=== PATIENT | male | born 1935 | race Caucasian/White ===

== ENCOUNTER 2020-06-12 18:19 | Inpatient (IN) ==
[2020-06-12] MEDS ORDERED: diphenhydrAMINE CAP 25 MG CAPSULE PO PRN (19:14)
[2020-06-12] MEDS ORDERED: GLUCAGON 1 MG VIAL IM PRN ×2 (19:14→19:33)
[2020-06-12] MEDS ORDERED: guaiFENesin/DM ER 600-30 MG TABLET PO PRN (19:14)
[2020-06-12] MEDS ORDERED: NICOTINE 21 MG/24 HR PATCH TRANSDERM PRN (19:14)
[2020-06-12] MEDS ORDERED: ONDANSETRON 4 MG/2 ML VIAL IV PRN (19:14)
[2020-06-12] MEDS ORDERED: DEXTROSE 50% 25 GM/50 ML VIAL IV PRN ×2 (19:14→19:33)
[2020-06-12] MEDS ORDERED: ALBUTEROL 2.5 MG/3 ML NEB RESP TX PRN (19:14)
[2020-06-12] MEDS ORDERED: hydrALAZINE 20 MG/1 ML VIAL IV PRN (19:14)
[2020-06-12 20:02] LABS: Basophils % 0.5 % (0.0-0.8); Eosinophils # 0.1 10*3/uL (0.0-0.87); Eosinophils % 0.7 % (0.00-10.9); Hematocrit 44.6 VOL% (42.0-52.0); Hemoglobin 14.5 GM/DL (14.0-18.0); Immature Granulocytes % 0.2 %; Immature Granulocytes Absolute 0.02 #; Lymphocytes # 2.3 10*3/uL (1.4-4.0); Lymphocytes % 28.8 % (21.2-54.2); Mean Corpuscular HGB Conc 32.5 GM/DL (32-36); Mean Corpuscular Volume 92.7 FL (87-102); Mean Platelet Volume 9.5 FL (9.6-12.0); Monocytes % 8.4 % (1.7-12.7); Neutrophils % 61.4 % (38.7-73.9); Platelet Count 173 T/CUMM (130-400); Red Blood Count 4.81 MC/CUMM (3.8-5.5); Red Cell Distribution Width 12.6 % (9.3-17.3); White Blood Count 8.1 T/CUMM (4-12)
[2020-06-12 20:20] LABS: Calcium 8.9 MG/DL (8.5-10.1); Osmolality,Calculated 283.5 MOS/KG (273-304)
[2020-06-12] MEDS: INSULIN LISPRO 100 UNIT/ML SUBCUT SCH (21:55)
[2020-06-12] MEDS: SODIUM CHLORIDE 0.9% 1,000 ML IV SCH (23:33)
[2020-06-12] MEDS: ZALEPLON 5 MG CAPSULE PO PRN (23:34)
[2020-06-13 01:19] LABS: Apearance,Urine Cloudy (Clear); Bilirubin,Urine Negative (Negative); Blood, Urine Small mg/dL (Negative); Glucose,Urine (UA) >500 mg/dL (Negative); Ketones,Urine 20 mg/dL (Negative); Nitrite,Urine Negative (Negative); Protein,Urine 30 MG/DL; Urine Color Yellow (Yellow); Urine Specific Gravity 1.024 (1.001-1.035); Urine Urobilinogen < 2.0 EU/DL (0.2-1.0)
[2020-06-13 01:20] LABS: Bacteria,Urine Few /HPF (Few); Mucus,Urine Few /LPF (Occasional); Squamous Epithelial Cell,Urine Few /HPF (0-10); WBC,Urine TNTC /HPF (0-6)
[2020-06-13] MEDS ORDERED: NAPROXEN 250 MG TABLET PO ONE (04:59)
[2020-06-13] MEDS: ACETAMINOPHEN 325 MG TABLET PO PRN ×2 (05:59→11:27)
[2020-06-13 06:56] LABS: Albumin 3.2 G/DL (3.4-5.0); Bilirubin,Total 1.1 MG/DL (0.2-1.0); Calcium 8.9 MG/DL (8.5-10.1); Osmolality,Calculated 284.4 MOS/KG (273-304); Risk Ratio 2.14; Total Protein 6.5 G/DL (6.4-8.3); VLDL CHOLESTEROL 14.2 MG/DL
[2020-06-13] MEDS: PANTOPRAZOLE 40 MG TABLET PO SCH (09:44)
[2020-06-13] MEDS: cefTRIAXone 1,000 MG in SYRINGE 1 EACH IV SCH (09:44)
[2020-06-13] MEDS: INSULIN LISPRO 100 UNIT/ML SUBCUT SCH ×4 (10:37→21:42)
[2020-06-13] MEDS: SODIUM CHLORIDE 0.9% 1,000 ML IV SCH (11:53)
[2020-06-13 16:27] LABS: Folate > 24.0 NG/ML (5.4-24.0); Vitamin B12 874 PG/ML (211-911)
[2020-06-13] MEDS: ZALEPLON 5 MG CAPSULE PO PRN ×2 (21:40→22:57)
[2020-06-13] MEDS: ACETAMINOPHEN 325 MG TABLET PO SCH (21:41)
[2020-06-13] MEDS: CITALOPRAM 20 MG TABLET PO SCH (21:41)
[2020-06-13] MEDS: GABAPENTIN 400 MG CAPSULE PO SCH (21:41)
[2020-06-13] MEDS: ZINC OXIDE PASTE 113 GM TUBE TOP SCH (21:42)
[2020-06-14] MEDS: SODIUM CHLORIDE 0.9% 1,000 ML IV SCH (01:52)
[2020-06-14 09:49] LABS: Basophils # 0.1 10*3/uL (0.0-0.2); Basophils % 0.7 % (0.0-0.8); Eosinophils # 0.3 10*3/uL (0.0-0.87); Eosinophils % 3.4 % (0.00-10.9); Hemoglobin 14.2 GM/DL (14.0-18.0); Immature Granulocytes % 0.2 %; Immature Granulocytes Absolute 0.02 #; Lymphocytes # 2.3 10*3/uL (1.4-4.0); Lymphocytes % 28.2 % (21.2-54.2); Mean Corpuscular HGB Conc 32.3 GM/DL (32-36); Mean Corpuscular Volume 93.6 FL (87-102); Mean Platelet Volume 9.5 FL (9.6-12.0); Monocytes % 8.2 % (1.7-12.7); Neutrophils % 59.3 % (38.7-73.9); Platelet Count 164 T/CUMM (130-400); Red Cell Distribution Width 12.6 % (9.3-17.3); White Blood Count 8.2 T/CUMM (4-12)
[2020-06-14 10:12] LABS: Calcium 8.7 MG/DL (8.5-10.1); Osmolality,Calculated 279.8 MOS/KG (273-304)
[2020-06-14] MEDS: cefTRIAXone 1,000 MG in SYRINGE 1 EACH IV SCH (10:48)
[2020-06-14] MEDS: INSULIN LISPRO 100 UNIT/ML SUBCUT SCH ×4 (10:54→23:14)
[2020-06-14] MEDS: TAMSULOSIN 0.4 MG CAPSULE PO SCH (10:57)
[2020-06-14] MEDS: ASCORBIC ACID 500 MG TABLET PO SCH (10:57)
[2020-06-14] MEDS: PANTOPRAZOLE 40 MG TABLET PO SCH (10:57)
[2020-06-14] MEDS: MULTIVITAMIN (CENTRUM) TABLET PO SCH (10:58)
[2020-06-14] MEDS: CITALOPRAM 20 MG TABLET PO SCH ×2 (10:58→22:20)
[2020-06-14] MEDS ORDERED: MAGNESIUM SULF RIDER 4 GM in PREMIX 1 EACH IV PRN (10:59)
[2020-06-14] MEDS ORDERED: MAGNESIUM SULF RIDER 2 GM in PREMIX 1 EACH IV PRN (10:59)
[2020-06-14] MEDS: ZINC OXIDE PASTE 113 GM TUBE TOP SCH ×2 (11:05→22:21)
[2020-06-14] MEDS: DOCUSATE SODIUM 100 MG CAPSULE PO PRN (11:06)
[2020-06-14] MEDS: PHENAZOPYRIDINE 95 MG TABLET PO SCH (17:05)
[2020-06-14] MEDS: ZALEPLON 5 MG CAPSULE PO PRN (22:18)
[2020-06-14] MEDS: GABAPENTIN 400 MG CAPSULE PO SCH (22:18)
[2020-06-14] MEDS: ACETAMINOPHEN 325 MG TABLET PO SCH (22:20)
[2020-06-14] MEDS: ATORVASTATIN 40 MG TABLET PO SCH (22:20)
[2020-06-15] MEDS: SODIUM CHLORIDE 0.9% 1,000 ML IV SCH ×3 (00:24→17:23)
[2020-06-15] MEDS: ACETAMINOPHEN 325 MG TABLET PO PRN (05:10)
[2020-06-15 06:11] LABS: Basophils % 0.5 % (0.0-0.8); Eosinophils # 0.3 10*3/uL (0.0-0.87); Eosinophils % 3.3 % (0.00-10.9); Hematocrit 42.7 VOL% (42.0-52.0); Hemoglobin 14.2 GM/DL (14.0-18.0); Immature Granulocytes % 0.3 %; Immature Granulocytes Absolute 0.02 #; Lymphocytes # 2.8 10*3/uL (1.4-4.0); Lymphocytes % 35.4 % (21.2-54.2); Mean Corpuscular HGB Conc 33.3 GM/DL (32-36); Mean Platelet Volume 9.3 FL (9.6-12.0); Monocytes % 8.9 % (1.7-12.7); Neutrophils % 51.6 % (38.7-73.9); Platelet Count 158 T/CUMM (130-400); Red Blood Count 4.69 MC/CUMM (3.8-5.5); Red Cell Distribution Width 12.5 % (9.3-17.3); White Blood Count 7.9 T/CUMM (4-12)
[2020-06-15 06:27] LABS: Calcium 8.6 MG/DL (8.5-10.1); Osmolality,Calculated 283.5 MOS/KG (273-304)
[2020-06-15] MEDS: PHENAZOPYRIDINE 95 MG TABLET PO SCH ×3 (09:14→17:22)
[2020-06-15] MEDS: ASCORBIC ACID 500 MG TABLET PO SCH (09:14)
[2020-06-15] MEDS: CITALOPRAM 20 MG TABLET PO SCH ×2 (09:14→20:56)
[2020-06-15] MEDS: PANTOPRAZOLE 40 MG TABLET PO SCH (09:14)
[2020-06-15] MEDS: TAMSULOSIN 0.4 MG CAPSULE PO SCH (09:14)
[2020-06-15] MEDS: ASPIRIN CHEW 81 MG TABLET PO SCH (09:14)
[2020-06-15] MEDS: INSULIN LISPRO 100 UNIT/ML SUBCUT SCH ×4 (09:15→22:06)
[2020-06-15] MEDS: cefTRIAXone 1,000 MG in SYRINGE 1 EACH IV SCH (09:15)
[2020-06-15] MEDS: ZINC OXIDE PASTE 113 GM TUBE TOP SCH ×2 (09:17→22:07)
[2020-06-15] MEDS: POTASSIUM CHLORIDE RIDER 10 MEQ in PREMIX 1 EACH IV PRN ×2 (09:17→11:24)
[2020-06-15] MEDS: lisinopriL 10 MG TABLET PO SCH (09:21)
[2020-06-15] MEDS: MULTIVITAMIN (CENTRUM) TABLET PO SCH (09:21)
[2020-06-15] MEDS ORDERED: AMPICILLIN INJ 1,000 MG in SODIUM CHLORIDE 0.9% 100 ML IV SCH (18:30)
[2020-06-15] MEDS ORDERED: AMPICILLIN INJ 500 MG in SODIUM CHLORIDE 0.9% 100 ML IV SCH (18:30)
[2020-06-15] MEDS: FLUCONAZOLE INJ 200 MG in PREMIX 1 EACH IV SCH (19:15)
[2020-06-15] MEDS: AMPICILLIN INJ 1,000 MG in SODIUM CHLORIDE 0.9% 100 ML IV SCH (20:53)
[2020-06-15] MEDS: ACETAMINOPHEN 325 MG TABLET PO SCH (20:56)
[2020-06-15] MEDS: GABAPENTIN 400 MG CAPSULE PO SCH (20:56)
[2020-06-15] MEDS: ATORVASTATIN 40 MG TABLET PO SCH (20:57)
[2020-06-16] MEDS: AMPICILLIN INJ 1,000 MG in SODIUM CHLORIDE 0.9% 100 ML IV SCH ×4 (04:33→21:57)
[2020-06-16] MEDS: SODIUM CHLORIDE 0.9% 1,000 ML IV SCH ×2 (04:37→17:40)
[2020-06-16 06:28] LABS: Basophils % 0.5 % (0.0-0.8); Eosinophils # 0.3 10*3/uL (0.0-0.87); Eosinophils % 4.5 % (0.00-10.9); Hematocrit 39.1 VOL% (42.0-52.0); Hemoglobin 12.7 GM/DL (14.0-18.0); Immature Granulocytes % 0.3 %; Immature Granulocytes Absolute 0.02 #; Lymphocytes # 2.7 10*3/uL (1.4-4.0); Lymphocytes % 37.3 % (21.2-54.2); Mean Corpuscular HGB Conc 32.5 GM/DL (32-36); Mean Corpuscular Volume 93.3 FL (87-102); Mean Platelet Volume 9.9 FL (9.6-12.0); Monocytes % 9.3 % (1.7-12.7); Neutrophils % 48.1 % (38.7-73.9); Platelet Count 154 T/CUMM (130-400); Red Blood Count 4.19 MC/CUMM (3.8-5.5); Red Cell Distribution Width 12.7 % (9.3-17.3); White Blood Count 7.3 T/CUMM (4-12)
[2020-06-16 06:49] LABS: Calcium 8.5 MG/DL (8.5-10.1); Osmolality,Calculated 286.5 MOS/KG (273-304)
[2020-06-16] MEDS: POTASSIUM CHLORIDE RIDER 10 MEQ in PREMIX 1 EACH IV PRN (07:36)
[2020-06-16] MEDS: PHENAZOPYRIDINE 95 MG TABLET PO SCH ×3 (09:09→16:15)
[2020-06-16] MEDS: ASCORBIC ACID 500 MG TABLET PO SCH (09:09)
[2020-06-16] MEDS: MULTIVITAMIN (CENTRUM) TABLET PO SCH (09:09)
[2020-06-16] MEDS: PANTOPRAZOLE 40 MG TABLET PO SCH (09:10)
[2020-06-16] MEDS: ASPIRIN CHEW 81 MG TABLET PO SCH (09:10)
[2020-06-16] MEDS: lisinopriL 10 MG TABLET PO SCH (09:10)
[2020-06-16] MEDS: TAMSULOSIN 0.4 MG CAPSULE PO SCH (09:10)
[2020-06-16] MEDS: CITALOPRAM 20 MG TABLET PO SCH ×2 (09:10→21:57)
[2020-06-16] MEDS: ZINC OXIDE PASTE 113 GM TUBE TOP SCH ×2 (09:11→21:58)
[2020-06-16] MEDS: INSULIN LISPRO 100 UNIT/ML SUBCUT SCH ×4 (10:29→21:10)
[2020-06-16] MEDS ORDERED: LACTULOSE 20 GM/30 ML UDCUP PO PRN (16:53)
[2020-06-16] MEDS: DOCUSATE SODIUM 100 MG CAPSULE PO PRN (17:40)
[2020-06-16] MEDS: FLUCONAZOLE INJ 200 MG in PREMIX 1 EACH IV SCH (17:40)
[2020-06-16] MEDS: ZALEPLON 5 MG CAPSULE PO PRN (21:56)
[2020-06-16] MEDS: GABAPENTIN 400 MG CAPSULE PO SCH (21:57)
[2020-06-16] MEDS: ATORVASTATIN 40 MG TABLET PO SCH (21:57)
[2020-06-16] MEDS: ACETAMINOPHEN 325 MG TABLET PO SCH (21:57)
[2020-06-17] MEDS: AMPICILLIN INJ 1,000 MG in SODIUM CHLORIDE 0.9% 100 ML IV SCH ×4 (02:36→21:23)
[2020-06-17 06:31] LABS: Basophils # 0.1 10*3/uL (0.0-0.2); Basophils % 0.7 % (0.0-0.8); Eosinophils # 0.3 10*3/uL (0.0-0.87); Eosinophils % 4.3 % (0.00-10.9); Hematocrit 40.2 VOL% (42.0-52.0); Hemoglobin 12.6 GM/DL (14.0-18.0); Immature Granulocytes % 0.3 %; Immature Granulocytes Absolute 0.02 #; Lymphocytes % 42.1 % (21.2-54.2); Mean Corpuscular HGB Conc 31.3 GM/DL (32-36); Mean Corpuscular Volume 95.5 FL (87-102); Mean Platelet Volume 10.9 FL (9.6-12.0); Monocytes % 7.3 % (1.7-12.7); Neutrophils % 45.3 % (38.7-73.9); Platelet Count 139 T/CUMM (130-400); Red Blood Count 4.21 MC/CUMM (3.8-5.5); Red Cell Distribution Width 12.4 % (9.3-17.3); White Blood Count 7.2 T/CUMM (4-12)
[2020-06-17 06:49] LABS: Calcium 8.3 MG/DL (8.5-10.1); Osmolality,Calculated 289.1 MOS/KG (273-304)
[2020-06-17] MEDS: SODIUM CHLORIDE 0.9% 1,000 ML IV SCH ×2 (07:18→14:01)
[2020-06-17] MEDS: INSULIN LISPRO 100 UNIT/ML SUBCUT SCH ×4 (08:34→23:51)
[2020-06-17] MEDS: PHENAZOPYRIDINE 95 MG TABLET PO SCH ×3 (08:36→18:21)
[2020-06-17] MEDS: MULTIVITAMIN (CENTRUM) TABLET PO SCH (08:36)
[2020-06-17] MEDS: CITALOPRAM 20 MG TABLET PO SCH ×2 (08:37→22:19)
[2020-06-17] MEDS: ASCORBIC ACID 500 MG TABLET PO SCH (08:37)
[2020-06-17] MEDS: ASPIRIN CHEW 81 MG TABLET PO SCH (08:37)
[2020-06-17] MEDS: TAMSULOSIN 0.4 MG CAPSULE PO SCH (08:37)
[2020-06-17] MEDS: PANTOPRAZOLE 40 MG TABLET PO SCH (08:37)
[2020-06-17] MEDS: ZINC OXIDE PASTE 113 GM TUBE TOP SCH ×2 (09:58→22:19)
[2020-06-17] MEDS: lisinopriL 10 MG TABLET PO SCH (09:58)
[2020-06-17] MEDS ORDERED: LACTULOSE 20 GM/30 ML UDCUP PO PRN ×2 (11:24→11:34)
[2020-06-17] MEDS: METOPROLOL TARTRATE 25 MG TABLET PO SCH ×2 (15:45→23:51)
[2020-06-17] MEDS ORDERED: NITROGLYCERIN SL 0.4 MG TABLET SL PRN (15:47)
[2020-06-17 17:11] LABS: Troponin I < 0.015 NG/ML (0.00-0.045)
[2020-06-17] MEDS: FLUCONAZOLE INJ 200 MG in PREMIX 1 EACH IV SCH (19:05)
[2020-06-17 19:55] LABS: Troponin I < 0.015 NG/ML (0.00-0.045)
[2020-06-17] MEDS: ZALEPLON 5 MG CAPSULE PO PRN (22:15)
[2020-06-17] MEDS: GABAPENTIN 400 MG CAPSULE PO SCH (22:17)
[2020-06-17] MEDS: ATORVASTATIN 40 MG TABLET PO SCH (22:18)
[2020-06-17] MEDS: ACETAMINOPHEN 325 MG TABLET PO SCH (22:18)
[2020-06-18] MEDS: AMPICILLIN INJ 1,000 MG in SODIUM CHLORIDE 0.9% 100 ML IV SCH ×2 (02:13→09:25)
[2020-06-18 05:31] LABS: Basophils # 0.1 10*3/uL (0.0-0.2); Basophils % 0.8 % (0.0-0.8); Eosinophils # 0.3 10*3/uL (0.0-0.87); Eosinophils % 3.6 % (0.00-10.9); Hematocrit 38.7 VOL% (42.0-52.0); Hemoglobin 12.6 GM/DL (14.0-18.0); Immature Granulocytes % 0.4 %; Immature Granulocytes Absolute 0.03 #; Lymphocytes # 2.7 10*3/uL (1.4-4.0); Lymphocytes % 34.1 % (21.2-54.2); Mean Corpuscular HGB Conc 32.6 GM/DL (32-36); Mean Corpuscular Volume 92.1 FL (87-102); Monocytes % 8.2 % (1.7-12.7); Neutrophils % 52.9 % (38.7-73.9); Platelet Count 144 T/CUMM (130-400); Red Cell Distribution Width 12.4 % (9.3-17.3)
[2020-06-18 06:10] LABS: Hypochromasia 1+; Microcytosis 1+; Platelet Estimate Adequate
[2020-06-18 06:23] LABS: Calcium 8.1 MG/DL (8.5-10.1); Osmolality,Calculated 285.8 MOS/KG (273-304)
[2020-06-18] MEDS ORDERED: PIOGLITAZONE 15 MG TABLET PO SCH (09:00)
[2020-06-18] MEDS ORDERED: MEMANTINE 5 MG TABLET PO SCH (09:00)
[2020-06-18] MEDS ORDERED: sitaGLIPtin 100 MG TABLET PO SCH (09:00)
[2020-06-18] MEDS: ASPIRIN CHEW 81 MG TABLET PO SCH (09:13)
[2020-06-18] MEDS: INSULIN LISPRO 100 UNIT/ML SUBCUT SCH (09:13)
[2020-06-18] MEDS: PHENAZOPYRIDINE 95 MG TABLET PO SCH (09:13)
[2020-06-18] MEDS: lisinopriL 10 MG TABLET PO SCH (09:13)
[2020-06-18] MEDS: PANTOPRAZOLE 40 MG TABLET PO SCH (09:13)
[2020-06-18] MEDS: CITALOPRAM 20 MG TABLET PO SCH (09:13)
[2020-06-18] MEDS: METOPROLOL TARTRATE 25 MG TABLET PO SCH (09:14)
[2020-06-18] MEDS: MULTIVITAMIN (CENTRUM) TABLET PO SCH (09:14)
[2020-06-18] MEDS: TAMSULOSIN 0.4 MG CAPSULE PO SCH (09:14)
[2020-06-18] MEDS: ASCORBIC ACID 500 MG TABLET PO SCH (11:08)
[2020-06-18] MEDS: ZINC OXIDE PASTE 113 GM TUBE TOP SCH (11:28)
[2020-06-18 11:41] VITALS: BP 141/71
== END 2020-06-18 13:28 | disposition swing bed (61) | DRG 698 ==
LOC: N.3E 19:01 → SUATTDRO 19:01
PROVIDERS: ADMIT Internal Medicine; ATTEND Internal Medicine

== ENCOUNTER 2021-09-22 09:52 | Inpatient (IN) ==
[2021-09-22 10:17] LABS: Basophils % 0.7 % (0.0-0.8); Eosinophils # 0.1 10*3/uL (0.0-0.87); Eosinophils % 2.2 % (0.00-10.9); Hematocrit 37.5 VOL% (42.0-52.0); Hemoglobin 11.7 GM/DL (14.0-18.0); Immature Granulocytes % 0.5 %; Immature Granulocytes Absolute 0.03 #; Lymphocytes # 1.6 10*3/uL (1.4-4.0); Lymphocytes % 27.5 % (21.2-54.2); Mean Corpuscular HGB Conc 31.2 GM/DL (32-36); Mean Corpuscular Volume 94.9 FL (87-102); Mean Platelet Volume 10.1 FL (9.6-12.0); Monocytes % 8.2 % (1.7-12.7); Neutrophils % 60.9 % (38.7-73.9); Platelet Count 112 T/CUMM (130-400); Red Blood Count 3.95 MC/CUMM (3.8-5.5); Red Cell Distribution Width 12.6 % (9.3-17.3); White Blood Count 5.8 T/CUMM (4-12)
[2021-09-22 10:32] LABS: Calcium 8.5 MG/DL (8.5-10.1); Osmolality,Calculated 292.3 MOS/KG (273-304); Potassium 3.7 MMOL/L (3.5-5.1)
[2021-09-22 10:40] LABS: Platelet Estimate Adequate
[2021-09-22 10:41] LABS: Anisocytosis 1+; Macrocytosis Slight; Ovalocytes Few
[2021-09-22] MEDS ORDERED: KETOROLAC 30 MG/1 ML VIAL IV STA (10:51)
[2021-09-22] MEDS ORDERED: ONDANSETRON 4 MG/2 ML VIAL IV STA (11:46)
[2021-09-22] MEDS ORDERED: HYDROmorphone 2 MG/1 ML VIAL IV STA (11:46)
[2021-09-22] MEDS ORDERED: ACETAMINOPHEN 325 MG TABLET PO PRN (11:50)
[2021-09-22] MEDS ORDERED: NALOXONE 0.4 MG/ML VIAL IV PRN (11:50)
[2021-09-22] MEDS ORDERED: ONDANSETRON 4 MG/2 ML VIAL IV PRN (11:50)
[2021-09-22] MEDS ORDERED: ENOXAPARIN 30 MG/0.3 ML SYRINGE SUBCUT SCH (12:00)
[2021-09-22] MEDS: SODIUM CHLORIDE 0.9% 1,000 ML IV SCH (12:30)
[2021-09-22] MEDS ORDERED: GLUCAGON 1 MG VIAL IM PRN (12:31)
[2021-09-22] MEDS ORDERED: DEXTROSE 50% 25 GM/50 ML VIAL IV PRN ×2 (12:31→13:22)
[2021-09-22] MEDS: CARBIDOPA/LEVODOPA 25-100 MG TABLET PO SCH ×2 (16:02→21:04)
[2021-09-22] MEDS: INSULIN LISPRO 100 UNIT/ML SUBCUT SCH ×2 (16:02→20:46)
[2021-09-22] MEDS: HYDROmorphone 2 MG/1 ML VIAL IV PRN ×2 (16:03→21:05)
[2021-09-22] MEDS ORDERED: METOPROLOL TARTRATE 25 MG TABLET PO SCH (17:00)
[2021-09-22] MEDS: TAMSULOSIN 0.4 MG CAPSULE PO SCH (21:03)
[2021-09-22] MEDS: MEMANTINE 10 MG TABLET PO SCH (21:04)
[2021-09-22] MEDS: DOCUSATE SODIUM 100 MG CAPSULE PO SCH (21:04)
[2021-09-22] MEDS: GABAPENTIN 400 MG CAPSULE PO SCH (21:04)
[2021-09-22] MEDS: TEMAZEPAM 15 MG CAPSULE PO SCH (21:04)
[2021-09-22] MEDS: MELATONIN 3 MG TABLET PO SCH (21:04)
[2021-09-22] MEDS: CITALOPRAM 20 MG TABLET PO SCH (21:04)
[2021-09-23] MEDS: SODIUM CHLORIDE 0.9% 1,000 ML IV SCH (04:04)
[2021-09-23] MEDS ORDERED: VANCOMYCIN INJ 1,000 MG in SODIUM CHLORIDE 0.9% 250 ML IV ONE (07:00)
[2021-09-23] MEDS ORDERED: ceFAZolin 2,000 MG/50 ML DUPLEX IV ONE (07:00)
[2021-09-23] MEDS: INSULIN LISPRO 100 UNIT/ML SUBCUT SCH ×4 (07:40→21:20)
[2021-09-23] MEDS: HYDROmorphone 2 MG/1 ML VIAL IV PRN ×5 (07:41→21:30)
[2021-09-23] MEDS: PIOGLITAZONE 15 MG TABLET PO SCH (08:22)
[2021-09-23] MEDS: CARBIDOPA/LEVODOPA 25-100 MG TABLET PO SCH ×3 (08:22→21:20)
[2021-09-23] MEDS: METOPROLOL TARTRATE 25 MG TABLET PO SCH (08:23)
[2021-09-23] MEDS: PANTOPRAZOLE 40 MG VIAL IV SCH (09:35)
[2021-09-23] MEDS: ASPIRIN CHEW 81 MG TABLET PO SCH (09:35)
[2021-09-23] MEDS: MEMANTINE 10 MG TABLET PO SCH ×2 (09:35→21:20)
[2021-09-23] MEDS: DOCUSATE SODIUM 100 MG CAPSULE PO SCH ×2 (09:35→21:20)
[2021-09-23] MEDS: FINASTERIDE 5 MG TABLET PO SCH (09:35)
[2021-09-23] MEDS: buPROPion SR 150 MG TABLET PO SCH (09:35)
[2021-09-23] MEDS: CITALOPRAM 20 MG TABLET PO SCH ×2 (09:35→21:20)
[2021-09-23] MEDS: FUROSEMIDE 40 MG TABLET PO SCH (09:35)
[2021-09-23] MEDS ORDERED: fentaNYL 100 MCG/2 ML VIAL ONE (10:09)
[2021-09-23] MEDS ORDERED: ROCURONIUM 50 MG/5 ML VIAL IV ONE (10:14)
[2021-09-23] MEDS ORDERED: LIDOCAINE 2% 5 ML VIAL ONE (10:14)
[2021-09-23] MEDS ORDERED: propofoL 200 MG/20 ML VIAL IV ONE (10:14)
[2021-09-23] MEDS ORDERED: ETOMIDATE 40 MG/20 ML VIAL IV ONE (10:14)
[2021-09-23] MEDS ORDERED: ROPIVACAINE 0.5% 30 ML VIAL ONE (10:17)
[2021-09-23] MEDS ORDERED: LIDOCAINE 1% 5 ML VIAL ONE (10:17)
[2021-09-23] MEDS ORDERED: BACITRACIN OINT 0.9 GM PACK TOP ONE (10:25)
[2021-09-23] MEDS ORDERED: ALBUMIN 5% 12.5 GM/250 ML VIAL IV ONE (10:37)
[2021-09-23] MEDS ORDERED: MAGNESIUM HYDROXIDE SUSP 30 ML UDCUP PO PRN (11:19)
[2021-09-23] MEDS ORDERED: DEXMEDETOMIDINE 200 MCG/2 ML VIAL ONE (12:41)
[2021-09-23] MEDS ORDERED: TRANEXAMIC ACID 1,000 MG/10 ML VIAL ONE (12:41)
[2021-09-23] MEDS ORDERED: PHENYLEPHRINE 10 MG/1 ML VIAL IV ONE (12:41)
[2021-09-23] MEDS ORDERED: DEXAMETHASONE 4 MG/1 ML VIAL ONE (12:41)
[2021-09-23] MEDS ORDERED: ONDANSETRON 4 MG/2 ML VIAL ONE (12:41)
[2021-09-23] MEDS ORDERED: GLYCOPYRROLATE 0.4 MG/2 ML VIAL ONE (12:42)
[2021-09-23] MEDS ORDERED: NEOSTIGMINE 10 MG/10 ML VIAL ONE (12:43)
[2021-09-23] MEDS ORDERED: ONDANSETRON 4 MG/2 ML VIAL IV PRN (13:18)
[2021-09-23] MEDS ORDERED: ALBUTEROL/IPRATROPIUM 3 ML NEB RESP TX ONE ×2 (13:40→13:43)
[2021-09-23] MEDS: ceFAZolin 2,000 MG/50 ML DUPLEX IV SCH ×2 (16:11→23:55)
[2021-09-23] MEDS: LACTATED RINGERS 1,000 ML IV SCH (16:12)
[2021-09-23] MEDS ORDERED: CLORAZEPATE 3.75 MG TABLET PO PRN (16:25)
[2021-09-23] MEDS: MELATONIN 3 MG TABLET PO SCH (21:19)
[2021-09-23] MEDS: TEMAZEPAM 15 MG CAPSULE PO SCH (21:19)
[2021-09-23] MEDS: GABAPENTIN 400 MG CAPSULE PO SCH (21:19)
[2021-09-23] MEDS: APIXABAN 2.5 MG TABLET PO SCH (21:20)
[2021-09-23] MEDS: TAMSULOSIN 0.4 MG CAPSULE PO SCH (21:20)
[2021-09-23] MEDS: ATORVASTATIN 40 MG TABLET PO SCH (21:20)
[2021-09-24] MEDS: LACTATED RINGERS 1,000 ML IV SCH (01:55)
[2021-09-24] MEDS: HYDROmorphone 2 MG/1 ML VIAL IV PRN ×2 (04:52→13:28)
[2021-09-24 05:12] LABS: Basophils % 0.2 % (0.0-0.8); Eosinophils # 0.2 10*3/uL (0.0-0.87); Eosinophils % 1.9 % (0.00-10.9); Hematocrit 40.2 VOL% (42.0-52.0); Hemoglobin 12.3 GM/DL (14.0-18.0); Immature Granulocytes % 0.5 %; Immature Granulocytes Absolute 0.05 #; Lymphocytes # 1.2 10*3/uL (1.4-4.0); Lymphocytes % 12.9 % (21.2-54.2); Mean Corpuscular HGB Conc 30.6 GM/DL (32-36); Mean Corpuscular Volume 97.3 FL (87-102); Mean Platelet Volume 10.2 FL (9.6-12.0); Monocytes % 9.2 % (1.7-12.7); Neutrophils % 75.3 % (38.7-73.9); Platelet Count 104 T/CUMM (130-400); Red Blood Count 4.13 MC/CUMM (3.8-5.5); Red Cell Distribution Width 12.6 % (9.3-17.3); White Blood Count 9.6 T/CUMM (4-12)
[2021-09-24 05:45] LABS: Calcium 8.5 MG/DL (8.5-10.1); Potassium 4.1 MMOL/L (3.5-5.1)
[2021-09-24] MEDS ORDERED: ONDANSETRON 4 MG/2 ML VIAL IV PRN (08:03)
[2021-09-24] MEDS: PIOGLITAZONE 15 MG TABLET PO SCH (11:04)
[2021-09-24] MEDS: ASPIRIN CHEW 81 MG TABLET PO SCH (11:07)
[2021-09-24] MEDS: CITALOPRAM 20 MG TABLET PO SCH ×2 (11:07→21:46)
[2021-09-24] MEDS: FUROSEMIDE 40 MG TABLET PO SCH (11:07)
[2021-09-24] MEDS: DOCUSATE SODIUM 100 MG CAPSULE PO SCH ×2 (11:07→21:46)
[2021-09-24] MEDS: APIXABAN 2.5 MG TABLET PO SCH ×2 (11:07→21:46)
[2021-09-24] MEDS: METOPROLOL TARTRATE 25 MG TABLET PO SCH (11:08)
[2021-09-24] MEDS: MEMANTINE 10 MG TABLET PO SCH ×2 (11:09→21:46)
[2021-09-24] MEDS: FINASTERIDE 5 MG TABLET PO SCH (11:09)
[2021-09-24] MEDS: buPROPion SR 150 MG TABLET PO SCH (11:10)
[2021-09-24] MEDS: PANTOPRAZOLE 40 MG VIAL IV SCH (11:10)
[2021-09-24] MEDS: CARBIDOPA/LEVODOPA 25-100 MG TABLET PO SCH ×3 (11:10→21:47)
[2021-09-24] MEDS ORDERED: SODIUM CHLORIDE 0.9% 500 ML IV ONE (12:00)
[2021-09-24] MEDS ORDERED: LORazepam 2 MG/1 ML VIAL IV ONE (12:00)
[2021-09-24] MEDS ORDERED: PROMETHAZINE 25 MG/1 ML VIAL IM PRN ×2 (12:25)
[2021-09-24] MEDS ORDERED: DULAGLUTIDE 1.5 MG/0.5 ML SUBCUT SCH (12:28)
[2021-09-24] MEDS: INSULIN LISPRO 100 UNIT/ML SUBCUT SCH ×4 (13:32→21:22)
[2021-09-24] MEDS ORDERED: LORazepam 2 MG/1 ML VIAL IV PRN (16:39)
[2021-09-24 17:28] LABS: Bilirubin,Urine Negative (Negative); Blood, Urine Small mg/dL (Negative); Glucose,Urine (UA) >=500 mg/dL (Negative); Hyaline Casts,Urine 3 /LPF (0-3); Ketones,Urine 20 mg/dL (Negative); Mucus,Urine Occasional /LPF (Occasional); Nitrite,Urine Negative (Negative); Protein,Urine Negative; RBC,Urine 7 /HPF (0-4); Squamous Epithelial Cell,Urine Occasional /HPF (0-10); Urine Appearance CLEAR (Clear); Urine Color Yellow (Yellow); Urine Specific Gravity 1.021 (1.001-1.035); Urine Urobilinogen < 2.0 EU/DL (0.2-1.0)
[2021-09-24] MEDS: TAMSULOSIN 0.4 MG CAPSULE PO SCH (21:22)
[2021-09-24] MEDS: MELATONIN 3 MG TABLET PO SCH (21:46)
[2021-09-24] MEDS: ATORVASTATIN 40 MG TABLET PO SCH (21:46)
[2021-09-24] MEDS: TEMAZEPAM 15 MG CAPSULE PO SCH (21:46)
[2021-09-24] MEDS: GABAPENTIN 400 MG CAPSULE PO SCH (21:47)
[2021-09-25 04:56] LABS: Basophils % 0.2 % (0.0-0.8); Eosinophils # 0.3 10*3/uL (0.0-0.87); Hematocrit 35.7 VOL% (42.0-52.0); Hemoglobin 11.4 GM/DL (14.0-18.0); Immature Granulocytes % 0.5 %; Immature Granulocytes Absolute 0.04 #; Lymphocytes # 1.4 10*3/uL (1.4-4.0); Lymphocytes % 16.4 % (21.2-54.2); Mean Corpuscular HGB Conc 31.9 GM/DL (32-36); Mean Corpuscular Volume 93.5 FL (87-102); Mean Platelet Volume 10.1 FL (9.6-12.0); Monocytes % 9.7 % (1.7-12.7); Neutrophils % 70.2 % (38.7-73.9); Platelet Count 114 T/CUMM (130-400); Red Blood Count 3.82 MC/CUMM (3.8-5.5); Red Cell Distribution Width 12.8 % (9.3-17.3); White Blood Count 8.3 T/CUMM (4-12)
[2021-09-25 05:18] LABS: Albumin 2.7 G/DL (3.4-5.0); Bilirubin,Total 1.1 MG/DL (0.20-1.00); Calcium 8.5 MG/DL (8.5-10.1); Osmolality,Calculated 286.5 MOS/KG (273-304); Potassium 3.9 MMOL/L (3.5-5.1); Total Protein 5.9 G/DL (6.4-8.2)
[2021-09-25] MEDS: INSULIN LISPRO 100 UNIT/ML SUBCUT SCH ×4 (08:44→22:29)
[2021-09-25] MEDS: LACTATED RINGERS 1,000 ML IV SCH ×2 (08:45→22:18)
[2021-09-25] MEDS: METOPROLOL TARTRATE 25 MG TABLET PO SCH (09:26)
[2021-09-25] MEDS: FUROSEMIDE 40 MG TABLET PO SCH (09:26)
[2021-09-25] MEDS: FINASTERIDE 5 MG TABLET PO SCH (09:26)
[2021-09-25] MEDS: APIXABAN 2.5 MG TABLET PO SCH ×2 (09:27→22:17)
[2021-09-25] MEDS: CITALOPRAM 20 MG TABLET PO SCH ×2 (09:27→22:17)
[2021-09-25] MEDS: ASPIRIN CHEW 81 MG TABLET PO SCH (09:27)
[2021-09-25] MEDS: PIOGLITAZONE 15 MG TABLET PO SCH (09:27)
[2021-09-25] MEDS: buPROPion SR 150 MG TABLET PO SCH (09:27)
[2021-09-25] MEDS: CARBIDOPA/LEVODOPA 25-100 MG TABLET PO SCH ×3 (09:27→22:18)
[2021-09-25] MEDS: MEMANTINE 10 MG TABLET PO SCH ×2 (09:28→22:17)
[2021-09-25] MEDS: DOCUSATE SODIUM 100 MG CAPSULE PO SCH ×2 (09:29→22:18)
[2021-09-25] MEDS: PANTOPRAZOLE 40 MG VIAL IV SCH (09:31)
[2021-09-25] MEDS: TAMSULOSIN 0.4 MG CAPSULE PO SCH ×2 (17:39→22:17)
[2021-09-25] MEDS: TEMAZEPAM 15 MG CAPSULE PO SCH (22:17)
[2021-09-25] MEDS: MELATONIN 3 MG TABLET PO SCH (22:18)
[2021-09-25] MEDS: GABAPENTIN 400 MG CAPSULE PO SCH (22:18)
[2021-09-25] MEDS: ATORVASTATIN 40 MG TABLET PO SCH (22:18)
[2021-09-26] MEDS: LACTATED RINGERS 1,000 ML IV SCH ×2 (04:24→14:24)
[2021-09-26 06:48] LABS: Basophils % 0.4 % (0.0-0.8); Eosinophils # 0.4 10*3/uL (0.0-0.87); Eosinophils % 6.4 % (0.00-10.9); Hematocrit 34.8 VOL% (42.0-52.0); Hemoglobin 11.3 GM/DL (14.0-18.0); Immature Granulocytes % 0.3 %; Immature Granulocytes Absolute 0.02 #; Lymphocytes # 1.6 10*3/uL (1.4-4.0); Lymphocytes % 23.8 % (21.2-54.2); Mean Corpuscular HGB Conc 32.5 GM/DL (32-36); Mean Corpuscular Volume 93.5 FL (87-102); Monocytes % 9.5 % (1.7-12.7); Neutrophils % 59.6 % (38.7-73.9); Platelet Count 121 T/CUMM (130-400); Red Blood Count 3.72 MC/CUMM (3.8-5.5); Red Cell Distribution Width 12.5 % (9.3-17.3); White Blood Count 6.7 T/CUMM (4-12)
[2021-09-26] MEDS: INSULIN LISPRO 100 UNIT/ML SUBCUT SCH ×4 (07:39→21:31)
[2021-09-26] MEDS: FINASTERIDE 5 MG TABLET PO SCH (10:04)
[2021-09-26] MEDS: PIOGLITAZONE 15 MG TABLET PO SCH (10:04)
[2021-09-26] MEDS: DOCUSATE SODIUM 100 MG CAPSULE PO SCH ×2 (10:04→21:32)
[2021-09-26] MEDS: CARBIDOPA/LEVODOPA 25-100 MG TABLET PO SCH ×3 (10:04→21:32)
[2021-09-26] MEDS: ASPIRIN CHEW 81 MG TABLET PO SCH (10:04)
[2021-09-26] MEDS: MEMANTINE 10 MG TABLET PO SCH ×2 (10:04→21:33)
[2021-09-26] MEDS: FUROSEMIDE 40 MG TABLET PO SCH (10:04)
[2021-09-26] MEDS: TAMSULOSIN 0.4 MG CAPSULE PO SCH ×2 (10:05→21:33)
[2021-09-26] MEDS: PANTOPRAZOLE 40 MG VIAL IV SCH (10:05)
[2021-09-26] MEDS: buPROPion SR 150 MG TABLET PO SCH (10:05)
[2021-09-26] MEDS: CITALOPRAM 20 MG TABLET PO SCH ×2 (10:05→21:33)
[2021-09-26] MEDS: APIXABAN 2.5 MG TABLET PO SCH ×2 (10:05→21:32)
[2021-09-26] MEDS: METOPROLOL TARTRATE 25 MG TABLET PO SCH (11:00)
[2021-09-26] MEDS: TEMAZEPAM 15 MG CAPSULE PO SCH (21:31)
[2021-09-26] MEDS: GABAPENTIN 400 MG CAPSULE PO SCH (21:32)
[2021-09-26] MEDS: MELATONIN 3 MG TABLET PO SCH (21:33)
[2021-09-26] MEDS: ATORVASTATIN 40 MG TABLET PO SCH (21:33)
[2021-09-27] MEDS: LACTATED RINGERS 1,000 ML IV SCH ×3 (00:38→19:11)
[2021-09-27] MEDS: buPROPion SR 150 MG TABLET PO SCH (09:08)
[2021-09-27] MEDS: PANTOPRAZOLE 40 MG VIAL IV SCH (09:08)
[2021-09-27] MEDS: INSULIN LISPRO 100 UNIT/ML SUBCUT SCH ×4 (09:08→21:11)
[2021-09-27] MEDS: PIOGLITAZONE 15 MG TABLET PO SCH (09:08)
[2021-09-27] MEDS: DOCUSATE SODIUM 100 MG CAPSULE PO SCH ×2 (09:09→20:05)
[2021-09-27] MEDS: ASPIRIN CHEW 81 MG TABLET PO SCH (09:09)
[2021-09-27] MEDS: FINASTERIDE 5 MG TABLET PO SCH (09:09)
[2021-09-27] MEDS: METOPROLOL TARTRATE 25 MG TABLET PO SCH (09:09)
[2021-09-27] MEDS: APIXABAN 2.5 MG TABLET PO SCH ×2 (09:09→20:05)
[2021-09-27] MEDS: TAMSULOSIN 0.4 MG CAPSULE PO SCH ×2 (09:09→20:05)
[2021-09-27] MEDS: CARBIDOPA/LEVODOPA 25-100 MG TABLET PO SCH ×3 (09:10→20:06)
[2021-09-27] MEDS: FUROSEMIDE 40 MG TABLET PO SCH (09:10)
[2021-09-27] MEDS: CITALOPRAM 20 MG TABLET PO SCH ×2 (09:10→20:05)
[2021-09-27] MEDS: MEMANTINE 10 MG TABLET PO SCH ×2 (09:10→20:06)
[2021-09-27] MEDS: ATORVASTATIN 40 MG TABLET PO SCH (20:05)
[2021-09-27] MEDS: TEMAZEPAM 15 MG CAPSULE PO SCH (20:05)
[2021-09-27] MEDS: GABAPENTIN 400 MG CAPSULE PO SCH (20:05)
[2021-09-27] MEDS: MELATONIN 3 MG TABLET PO SCH (20:06)
[2021-09-28] MEDS: LACTATED RINGERS 1,000 ML IV SCH ×2 (04:37→16:46)
[2021-09-28] MEDS: TAMSULOSIN 0.4 MG CAPSULE PO SCH ×2 (09:43→22:10)
[2021-09-28] MEDS: PIOGLITAZONE 15 MG TABLET PO SCH (09:43)
[2021-09-28] MEDS: buPROPion SR 150 MG TABLET PO SCH (09:43)
[2021-09-28] MEDS: FINASTERIDE 5 MG TABLET PO SCH (09:43)
[2021-09-28] MEDS: DOCUSATE SODIUM 100 MG CAPSULE PO SCH ×2 (09:44→22:10)
[2021-09-28] MEDS: CARBIDOPA/LEVODOPA 25-100 MG TABLET PO SCH ×3 (09:44→22:11)
[2021-09-28] MEDS: FUROSEMIDE 40 MG TABLET PO SCH (09:44)
[2021-09-28] MEDS: METOPROLOL TARTRATE 25 MG TABLET PO SCH (09:44)
[2021-09-28] MEDS: MEMANTINE 10 MG TABLET PO SCH ×2 (09:44→22:11)
[2021-09-28] MEDS: APIXABAN 2.5 MG TABLET PO SCH ×2 (09:44→22:11)
[2021-09-28] MEDS: ASPIRIN CHEW 81 MG TABLET PO SCH (09:44)
[2021-09-28] MEDS: CITALOPRAM 20 MG TABLET PO SCH ×2 (09:45→22:10)
[2021-09-28] MEDS: PANTOPRAZOLE 40 MG VIAL IV SCH (09:50)
[2021-09-28] MEDS: INSULIN LISPRO 100 UNIT/ML SUBCUT SCH ×4 (10:11→22:38)
[2021-09-28] MEDS: GABAPENTIN 400 MG CAPSULE PO SCH (22:10)
[2021-09-28] MEDS: ATORVASTATIN 40 MG TABLET PO SCH (22:10)
[2021-09-28] MEDS: TEMAZEPAM 15 MG CAPSULE PO SCH (22:10)
[2021-09-28] MEDS: MELATONIN 3 MG TABLET PO SCH (22:11)
[2021-09-29] MEDS: LACTATED RINGERS 1,000 ML IV SCH (02:39)
[2021-09-29 05:54] LABS: Basophils % 0.6 % (0.0-0.8); Eosinophils # 0.5 10*3/uL (0.0-0.87); Hemoglobin 10.5 GM/DL (14.0-18.0); Immature Granulocytes % 0.2 %; Immature Granulocytes Absolute 0.01 #; Lymphocytes # 1.9 10*3/uL (1.4-4.0); Lymphocytes % 29.4 % (21.2-54.2); Mean Corpuscular HGB Conc 31.8 GM/DL (32-36); Mean Corpuscular Volume 93.5 FL (87-102); Mean Platelet Volume 11.1 FL (9.6-12.0); Monocytes % 9.6 % (1.7-12.7); Neutrophils % 53.2 % (38.7-73.9); Platelet Count 128 T/CUMM (130-400); Red Blood Count 3.53 MC/CUMM (3.8-5.5); Red Cell Distribution Width 12.5 % (9.3-17.3); White Blood Count 6.5 T/CUMM (4-12)
[2021-09-29 06:12] LABS: Calcium 7.9 MG/DL (8.5-10.1); Osmolality,Calculated 277.7 MOS/KG (273-304); Potassium 2.6 MMOL/L (3.5-5.1)
[2021-09-29] MEDS: ASPIRIN CHEW 81 MG TABLET PO SCH (09:03)
[2021-09-29] MEDS: TAMSULOSIN 0.4 MG CAPSULE PO SCH ×2 (09:03→20:25)
[2021-09-29] MEDS: CARBIDOPA/LEVODOPA 25-100 MG TABLET PO SCH ×3 (09:04→20:25)
[2021-09-29] MEDS: MEMANTINE 10 MG TABLET PO SCH ×2 (09:04→20:25)
[2021-09-29] MEDS: APIXABAN 2.5 MG TABLET PO SCH ×2 (09:05→20:25)
[2021-09-29] MEDS: DOCUSATE SODIUM 100 MG CAPSULE PO SCH ×2 (09:06→20:26)
[2021-09-29] MEDS: METOPROLOL TARTRATE 25 MG TABLET PO SCH ×2 (09:08→20:25)
[2021-09-29] MEDS: CITALOPRAM 20 MG TABLET PO SCH ×2 (09:08→20:25)
[2021-09-29] MEDS: FUROSEMIDE 40 MG TABLET PO SCH (09:10)
[2021-09-29] MEDS: FINASTERIDE 5 MG TABLET PO SCH (09:11)
[2021-09-29] MEDS: buPROPion SR 150 MG TABLET PO SCH (09:11)
[2021-09-29] MEDS: PIOGLITAZONE 15 MG TABLET PO SCH (09:11)
[2021-09-29] MEDS: PANTOPRAZOLE 40 MG VIAL IV SCH (09:12)
[2021-09-29] MEDS: INSULIN LISPRO 100 UNIT/ML SUBCUT SCH ×4 (09:15→20:35)
[2021-09-29] MEDS: POTASSIUM CHLORIDE RIDER 10 MEQ/100 ML PREMIX IV PRN ×4 (10:12→20:36)
[2021-09-29] MEDS: ASCORBIC ACID 500 MG TABLET PO SCH ×2 (15:00→20:25)
[2021-09-29] MEDS: ATORVASTATIN 40 MG TABLET PO SCH (20:24)
[2021-09-29] MEDS: TEMAZEPAM 15 MG CAPSULE PO SCH (20:24)
[2021-09-29] MEDS: GABAPENTIN 400 MG CAPSULE PO SCH (20:24)
[2021-09-29] MEDS: MELATONIN 3 MG TABLET PO SCH (20:25)
[2021-09-30] MEDS: LACTATED RINGERS 1,000 ML IV SCH (01:04)
[2021-09-30] MEDS ORDERED: MAGNESIUM SULF RIDER 2 GM/50 ML PREMIX IV ONE (07:30)
[2021-09-30] MEDS: TAMSULOSIN 0.4 MG CAPSULE PO SCH (08:43)
[2021-09-30] MEDS: buPROPion SR 150 MG TABLET PO SCH (08:43)
[2021-09-30] MEDS: CITALOPRAM 20 MG TABLET PO SCH (08:43)
[2021-09-30] MEDS: FUROSEMIDE 40 MG TABLET PO SCH (08:43)
[2021-09-30] MEDS: APIXABAN 2.5 MG TABLET PO SCH (08:44)
[2021-09-30] MEDS: MEMANTINE 10 MG TABLET PO SCH (08:44)
[2021-09-30] MEDS: CARBIDOPA/LEVODOPA 25-100 MG TABLET PO SCH (08:44)
[2021-09-30] MEDS: ASPIRIN CHEW 81 MG TABLET PO SCH (08:44)
[2021-09-30] MEDS: PIOGLITAZONE 15 MG TABLET PO SCH (08:44)
[2021-09-30] MEDS: ASCORBIC ACID 500 MG TABLET PO SCH (08:44)
[2021-09-30] MEDS: FINASTERIDE 5 MG TABLET PO SCH (08:44)
[2021-09-30] MEDS: METOPROLOL TARTRATE 25 MG TABLET PO SCH (08:45)
[2021-09-30] MEDS: INSULIN LISPRO 100 UNIT/ML SUBCUT SCH ×2 (08:52→13:23)
[2021-09-30] MEDS: DOCUSATE SODIUM 100 MG CAPSULE PO SCH (08:52)
[2021-09-30] MEDS: PANTOPRAZOLE 40 MG VIAL IV SCH (08:53)
[2021-09-30] MEDS ORDERED: POTASSIUM CHLORIDE 20 MEQ TABLET PO SCH (09:00)
[2021-09-30 11:14] VITALS: BP 115/63
== END 2021-09-30 13:21 | DRG 522 ==
LOC: EDUNIT# → EDBD → N.ED 09:52 → N.EDINP 11:50 → N.3E 12:37
PROVIDERS: ADMIT Family Medicine; ATTEND Family Medicine

== ENCOUNTER 2022-07-27 23:20 | Inpatient (IN) ==
[2022-07-28] MEDS ORDERED: ONDANSETRON 4 MG/2 ML VIAL IV STA (00:48)
[2022-07-28] MEDS ORDERED: HYDROmorphone 1 MG/1 ML SYRINGE IV STA (00:48)
[2022-07-28 01:22] LABS: Basophils % 0.4 % (0.0-0.8); Eosinophils # 0.2 10*3/uL (0.0-0.87); Eosinophils % 2.4 % (0.00-10.9); Hematocrit 40.5 VOL% (42.0-52.0); Hemoglobin 13.1 GM/DL (14.0-18.0); Immature Granulocytes % 0.4 %; Immature Granulocytes Absolute 0.03 #; Lymphocytes # 1.8 10*3/uL (1.4-4.0); Lymphocytes % 25.5 % (21.2-54.2); Mean Corpuscular HGB Conc 32.3 GM/DL (32-36); Mean Corpuscular Volume 93.3 FL (87-102); Mean Platelet Volume 10.1 FL (9.6-12.0); Monocytes # 0.6 10*3/uL (0.11-0.8); Monocytes % 8.9 % (1.7-12.7); Neutrophils % 62.4 % (38.7-73.9); Platelet Count 127 T/CUMM (130-400); Red Blood Count 4.34 MC/CUMM (3.8-5.5)
[2022-07-28 01:33] LABS: INR 1.4; PT Patient Result 15.6 SECS (10.1-12.1); Partial Thromboplastin Time 29.1 SECS (23.7-32.9)
[2022-07-28 01:39] LABS: Bacteria,Urine Occasional /HPF (Few); Bilirubin,Urine Negative (Negative); Blood, Urine Negative (Negative); Glucose,Urine (UA) >=1000 mg/dL (Negative); Ketones,Urine Negative (Negative); Mucus,Urine Occasional /LPF (Occasional); Nitrite,Urine Negative (Negative); Protein,Urine Negative (Negative); RBC,Urine <1 /HPF (0-4); Squamous Epithelial Cell,Urine Occasional /HPF (0-10); Urine Appearance Clear (Clear); Urine Color Yellow (Yellow); Urine Urobilinogen 0.2 eU/dL (<2.0); Urine pH 5.5 (4.5-8.0)
[2022-07-28 01:39] LABS: Bilirubin,Total 0.5 MG/DL (0.20-1.00); Calcium 9.2 MG/DL (8.5-10.1); Osmolality,Calculated 293.5 MOS/KG (273-304); Potassium 4.2 MMOL/L (3.5-5.1); Total Protein 6.8 G/DL (6.4-8.2)
[2022-07-28] MEDS ORDERED: ACETAMINOPHEN 325 MG TABLET PO PRN (02:27)
[2022-07-28] MEDS ORDERED: ONDANSETRON 4 MG/2 ML VIAL IV PRN ×2 (02:27→13:53)
[2022-07-28] MEDS: SODIUM CHLORIDE 0.9% 1,000 ML IV SCH ×2 (03:30→12:33)
[2022-07-28] MEDS ORDERED: ceFAZolin 2,000 MG/50 ML DUPLEX IV ONE (07:37)
[2022-07-28] MEDS ORDERED: VANCOMYCIN INJ 1,000 MG in SODIUM CHLORIDE 0.9% 250 ML IV ONE (07:37)
[2022-07-28] MEDS: ATORVASTATIN 40 MG TABLET PO SCH (08:28)
[2022-07-28] MEDS: PANTOPRAZOLE 40 MG TABLET PO SCH (08:28)
[2022-07-28] MEDS: ASPIRIN CHEW 81 MG TABLET PO SCH (08:28)
[2022-07-28] MEDS: ASCORBIC ACID 500 MG TABLET PO SCH ×2 (08:28→20:53)
[2022-07-28] MEDS: DOCUSATE SODIUM 100 MG CAPSULE PO SCH ×2 (08:28→20:53)
[2022-07-28] MEDS ORDERED: ENOXAPARIN 40 MG/0.4 ML SYRINGE SUBCUT SCH ×2 (08:30)
[2022-07-28] MEDS: CARBIDOPA/LEVODOPA 25-100 MG TABLET PO SCH ×3 (09:24→20:53)
[2022-07-28] MEDS: METOPROLOL TARTRATE 25 MG TABLET PO SCH ×2 (09:24→17:26)
[2022-07-28] MEDS: HYDROmorphone 1 MG/1 ML SYRINGE IV PRN ×3 (09:27→14:15)
[2022-07-28] MEDS ORDERED: DEXAMETHASONE 4 MG/1 ML VIAL ONE (09:29)
[2022-07-28] MEDS ORDERED: ROPIVACAINE 0.5% 30 ML VIAL ONE (09:29)
[2022-07-28] MEDS ORDERED: fentaNYL 100 MCG/2 ML VIAL ONE (10:37)
[2022-07-28] MEDS ORDERED: LIDOCAINE 2% 5 ML VIAL ONE (10:38)
[2022-07-28] MEDS ORDERED: propofoL 200 MG/20 ML VIAL IV ONE (10:38)
[2022-07-28] MEDS ORDERED: BACITRACIN OINT 0.9 GM PACK TOP ONE (11:05)
[2022-07-28] MEDS ORDERED: ROCURONIUM 50 MG/5 ML VIAL IV ONE (11:07)
[2022-07-28] MEDS ORDERED: ePHEDrine 50 MG/ML VIAL ONE ×2 (11:59→12:57)
[2022-07-28] MEDS ORDERED: TRANEXAMIC ACID 1,000 MG/10 ML VIAL ONE (12:15)
[2022-07-28] MEDS ORDERED: SODIUM CHLORIDE 0.9% 100 ML IV ONE (12:15)
[2022-07-28] MEDS ORDERED: LACTATED RINGERS 1,000 ML IV ONE (12:19)
[2022-07-28] MEDS ORDERED: ACETAMINOPHEN INJ 1,000 MG/100 ML VIAL IV ONE (12:45)
[2022-07-28] MEDS ORDERED: PHENYLEPHRINE 1 MG/10 ML SYRINGE IV ONE (12:47)
[2022-07-28] MEDS ORDERED: ONDANSETRON 4 MG/2 ML VIAL ONE (12:48)
[2022-07-28] MEDS ORDERED: NEOSTIGMINE 10 MG/10 ML VIAL ONE (12:50)
[2022-07-28] MEDS ORDERED: GLYCOPYRROLATE 0.4 MG/2 ML VIAL ONE (12:50)
[2022-07-28] MEDS ORDERED: MAGNESIUM HYDROXIDE SUSP 30 ML UDCUP PO PRN (13:22)
[2022-07-28] MEDS ORDERED: KETOROLAC 30 MG/1 ML VIAL ONE (13:57)
[2022-07-28] MEDS: KETOROLAC 15 MG/1 ML VIAL IV SCH ×2 (14:06→20:50)
[2022-07-28] MEDS: LACTATED RINGERS 1,000 ML IV SCH ×2 (15:58→20:00)
[2022-07-28] MEDS: ceFAZolin 2,000 MG/50 ML DUPLEX IV SCH (17:30)
[2022-07-28] MEDS ORDERED: INSULIN REGULAR 100 UNIT/ML SUBCUT ONE (20:39)
[2022-07-28] MEDS ORDERED: GLUCAGON 1 MG VIAL IM PRN (21:09)
[2022-07-28] MEDS ORDERED: DEXTROSE 10% 250 ML BAG IV PRN (21:09)
[2022-07-29] MEDS: ceFAZolin 2,000 MG/50 ML DUPLEX IV SCH (01:18)
[2022-07-29] MEDS: KETOROLAC 15 MG/1 ML VIAL IV SCH (01:18)
[2022-07-29] MEDS: LACTATED RINGERS 1,000 ML IV SCH ×3 (03:07→21:28)
[2022-07-29 05:12] LABS: Basophils % 0.2 % (0.0-0.8); Eosinophils % 0.3 % (0.00-10.9); Hematocrit 34.1 VOL% (42.0-52.0); Hemoglobin 10.7 GM/DL (14.0-18.0); Immature Granulocytes % 0.3 %; Immature Granulocytes Absolute 0.03 #; Lymphocytes # 0.9 10*3/uL (1.4-4.0); Lymphocytes % 10.4 % (21.2-54.2); Mean Corpuscular HGB Conc 31.4 GM/DL (32-36); Mean Corpuscular Volume 95.8 FL (87-102); Mean Platelet Volume 10.5 FL (9.6-12.0); Monocytes # 0.7 10*3/uL (0.11-0.8); Neutrophils % 80.8 % (38.7-73.9); Platelet Count 111 T/CUMM (130-400); Red Blood Count 3.56 MC/CUMM (3.8-5.5); Red Cell Distribution Width 13.1 % (9.3-17.3); White Blood Count 8.6 T/CUMM (4-12)
[2022-07-29 05:23] LABS: Calcium 8.2 MG/DL (8.5-10.1); Osmolality,Calculated 291.7 MOS/KG (273-304); Potassium 4.5 MMOL/L (3.5-5.1)
[2022-07-29] MEDS ORDERED: PHENAZOPYRIDINE 95 MG TABLET PO PRN (07:00)
[2022-07-29] MEDS ORDERED: LORazepam 0.5 MG TABLET PO PRN (07:00)
[2022-07-29] MEDS ORDERED: DULAGLUTIDE 1.5 MG/0.5 ML SUBCUT SCH (09:00)
[2022-07-29] MEDS: DOCUSATE SODIUM 100 MG CAPSULE PO SCH ×2 (09:04→20:41)
[2022-07-29] MEDS: CITALOPRAM 20 MG TABLET PO SCH (09:04)
[2022-07-29] MEDS: TAMSULOSIN 0.4 MG CAPSULE PO SCH ×2 (09:05→20:32)
[2022-07-29] MEDS: FINASTERIDE 5 MG TABLET PO SCH (09:05)
[2022-07-29] MEDS: PIOGLITAZONE 15 MG TABLET PO SCH (09:05)
[2022-07-29] MEDS: CARBIDOPA/LEVODOPA 25-100 MG TABLET PO SCH ×3 (09:05→20:33)
[2022-07-29] MEDS: ASPIRIN CHEW 81 MG TABLET PO SCH (09:05)
[2022-07-29] MEDS: DULoxetine 30 MG CAPSULE PO SCH (09:06)
[2022-07-29] MEDS: ATORVASTATIN 40 MG TABLET PO SCH (09:07)
[2022-07-29] MEDS: busPIRone 5 MG TABLET PO SCH ×2 (09:07→20:32)
[2022-07-29] MEDS: buPROPion SR 150 MG TABLET PO SCH (09:07)
[2022-07-29] MEDS: FUROSEMIDE 40 MG TABLET PO SCH (09:07)
[2022-07-29] MEDS: APIXABAN 2.5 MG TABLET PO SCH ×2 (09:07→20:33)
[2022-07-29] MEDS: POTASSIUM CHLORIDE 20 MEQ TABLET PO SCH ×2 (09:07→20:32)
[2022-07-29] MEDS: PANTOPRAZOLE 40 MG TABLET PO SCH (09:07)
[2022-07-29] MEDS: INSULIN REGULAR 100 UNIT/ML SUBCUT SCH ×4 (09:08→21:17)
[2022-07-29] MEDS: ASCORBIC ACID 500 MG TABLET PO SCH ×2 (09:08→20:32)
[2022-07-29] MEDS: METOPROLOL TARTRATE 25 MG TABLET PO SCH ×2 (09:08→20:33)
[2022-07-29] MEDS: MEMANTINE 10 MG TABLET PO SCH ×2 (09:15→20:32)
[2022-07-29] MEDS ORDERED: MAGNESIUM SULF RIDER 4 GM/100 ML PREMIX IV PRN (10:05)
[2022-07-29] MEDS ORDERED: MAGNESIUM SULF RIDER 2 GM/50 ML PREMIX IV PRN (10:05)
[2022-07-29] MEDS: HYDROmorphone 1 MG/1 ML SYRINGE IV PRN (10:52)
[2022-07-29] MEDS ORDERED: MIRTAZAPINE 15 MG TABLET PO SCH (21:00)
[2022-07-29] MEDS ORDERED: ZALEPLON 5 MG CAPSULE PO SCH (21:00)
[2022-07-29] MEDS ORDERED: MELATONIN 3 MG TABLET PO SCH (21:00)
[2022-07-29] MEDS ORDERED: GABAPENTIN 400 MG CAPSULE PO SCH (21:00)
[2022-07-29] MEDS ORDERED: INSULIN GLARGINE 100 UNIT/ML SUBCUT SCH (21:00)
[2022-07-29] MEDS ORDERED: CITALOPRAM 20 MG TABLET PO SCH (21:00)
[2022-07-30] MEDS: LACTATED RINGERS 1,000 ML IV SCH (05:28)
[2022-07-30 06:10] LABS: Basophils % 0.6 % (0.0-0.8); Eosinophils # 0.4 10*3/uL (0.0-0.87); Eosinophils % 5.7 % (0.00-10.9); Hematocrit 34.8 VOL% (42.0-52.0); Hemoglobin 11.2 GM/DL (14.0-18.0); Immature Granulocytes % 0.6 %; Immature Granulocytes Absolute 0.04 #; Lymphocytes # 1.2 10*3/uL (1.4-4.0); Lymphocytes % 18.1 % (21.2-54.2); Mean Corpuscular HGB Conc 32.2 GM/DL (32-36); Mean Corpuscular Volume 94.1 FL (87-102); Monocytes # 0.6 10*3/uL (0.11-0.8); Monocytes % 9.1 % (1.7-12.7); Neutrophils % 65.9 % (38.7-73.9); Platelet Count 117 T/CUMM (130-400); Red Cell Distribution Width 13.2 % (9.3-17.3); White Blood Count 6.9 T/CUMM (4-12)
[2022-07-30 06:29] LABS: Osmolality,Calculated 285.7 MOS/KG (273-304); Potassium 4.2 MMOL/L (3.5-5.1)
[2022-07-30] MEDS ORDERED: BISACODYL 10 MG SUPP RECTAL ONE (07:30)
[2022-07-30] MEDS ORDERED: POLYETHYLENE GLYCOL POWDER 17 GM PACK PO SCH (09:00)
[2022-07-30] MEDS: busPIRone 5 MG TABLET PO SCH (09:02)
[2022-07-30] MEDS: POTASSIUM CHLORIDE 20 MEQ TABLET PO SCH (09:02)
[2022-07-30] MEDS: FUROSEMIDE 40 MG TABLET PO SCH (09:02)
[2022-07-30] MEDS: DULoxetine 30 MG CAPSULE PO SCH (09:03)
[2022-07-30] MEDS: PANTOPRAZOLE 40 MG TABLET PO SCH (09:03)
[2022-07-30] MEDS: buPROPion SR 150 MG TABLET PO SCH (09:03)
[2022-07-30] MEDS: CARBIDOPA/LEVODOPA 25-100 MG TABLET PO SCH ×2 (09:04→17:01)
[2022-07-30] MEDS: MEMANTINE 10 MG TABLET PO SCH (09:04)
[2022-07-30] MEDS: PIOGLITAZONE 15 MG TABLET PO SCH (09:04)
[2022-07-30] MEDS: FINASTERIDE 5 MG TABLET PO SCH (09:04)
[2022-07-30] MEDS: TAMSULOSIN 0.4 MG CAPSULE PO SCH (09:04)
[2022-07-30] MEDS: ASPIRIN CHEW 81 MG TABLET PO SCH (09:05)
[2022-07-30] MEDS: ATORVASTATIN 40 MG TABLET PO SCH (09:05)
[2022-07-30] MEDS: ASCORBIC ACID 500 MG TABLET PO SCH (09:05)
[2022-07-30] MEDS: DOCUSATE SODIUM 100 MG CAPSULE PO SCH (09:05)
[2022-07-30] MEDS: METOPROLOL TARTRATE 25 MG TABLET PO SCH (09:05)
[2022-07-30] MEDS: APIXABAN 2.5 MG TABLET PO SCH (09:06)
[2022-07-30] MEDS: INSULIN REGULAR 100 UNIT/ML SUBCUT SCH ×2 (09:06→12:25)
[2022-07-30] MEDS: CITALOPRAM 20 MG TABLET PO SCH (09:08)
[2022-07-30 16:15] VITALS: BP 122/49
== END 2022-07-30 16:50 | DRG 522 ==
LOC: EDBD → EDUNIT# → N.ED 23:20 → N.3E 07-28 01:37
PROVIDERS: ADMIT Family Medicine; ATTEND Family Medicine